=== PATIENT | female | born 1990 | race Caucasian/White ===

== ENCOUNTER 2018-08-26 08:14 | Outpatient (CLI) | payer OTHER ==
[2018-08-26] MEDS ORDERED: None per pt (08:38)
[2018-08-26 09:13] LABS: BASOPHILS # (AUTO) 0.06 x10^3/uL (0-0.1); BASOPHILS % (AUTO) 1 % (0-1); EOSINOPHILS # (AUTO) 0.09 x10^3/uL (0-0.4); EOSINOPHILS % (AUTO) 1 % (1-7); LYMPHOCYTES # (AUTO) 1.89 x10^3/uL (1-3.4); LYMPHOCYTES % (AUTO) 29 % (22-44); MD NO; MEAN CORPUSCULAR HEMOGLOBIN 30.2 pg (27.0-34.8); MEAN CORPUSCULAR VOLUME 88.9 fL (80-100); MEAN PLATELET VOLUME 9.3 fL (7.4-10.4); MONOCYTES # (AUTO) 0.51 x10^3/uL (0.2-0.8); MONOCYTES % (AUTO) 8 % (2-9); NEUTROPHILS # (AUTO) 3.88 x10^3/uL (1.8-6.8); NEUTROPHILS % (AUTO) 60 % (42-75); PLATELET COUNT 200 x10^3/uL (130-400); RED BLOOD COUNT 5.07 x10^6/uL (3.82-5.3); RED CELL DISTRIBUTION WIDTH 12.7 % (9.6-15.2)
== END 2018-08-26 23:59 | disposition home or self-care (01) ==
LOC: STAR 08:14
PROVIDERS: ATTEND Obstetrics & Gynecology
DX: Z01.818 Encounter for other preprocedural examination (principal); D06.9 Carcinoma in situ of cervix, unspecified; R94.31 Abnormal electrocardiogram [ECG] [EKG]
CPT/HCPCS: 36415; 84703; 85025; 93005

== ENCOUNTER 2018-09-02 12:07 | Day surgery (SDC) | payer OTHER ==
[~2018-09-02] VITALS: Ht 172.7 cm; Wt 61.7 kg
[~2018-09-02 12:07] MED LIST: None per pt
[2018-09-02 12:28] VITALS: BP 120/77
[2018-09-02] MEDS ORDERED: HYDROmorphone 1 MG/ML, 1ML INJ IV PRN (12:30)
[2018-09-02] MEDS ORDERED: MEPERIDINE/PF 25MG/0.5ML IVPush PRN (12:30)
[2018-09-02] MEDS ORDERED: METOCLOPRAMIDE 5 MG/ML, 2ML IV PRN (12:30)
[2018-09-02] MEDS ORDERED: FENTANYL PF 100 MCG/2ML IV PRN (12:30)
[2018-09-02] MEDS ORDERED: HYDROcodone/APAP 7.5-325MG/15ML UDC PO PRN (12:30)
[2018-09-02] MEDS ORDERED: MIDAZOLAM 1 MG/ML, 2ML IV PRN (12:30)
[2018-09-02] MEDS ORDERED: KETOROLAC 30 MG/1 ML IV PRN (12:30)
[2018-09-02] MEDS ORDERED: ONDANSETRON 2MG/ML, 2ML IVPush PRN (12:30)
[2018-09-02] MEDS ORDERED: LABETALOL 5MG/ML, 20ML IV PRN (12:30)
[2018-09-02] MEDS ORDERED: OXYcodone 5 MG/5 ML ORAL.SOL UDC PO PRN (12:30)
[2018-09-02] MEDS ORDERED: LACTATED RINGERS 1,000 ML IV SCH (12:31)
[2018-09-02 12:38] LABS: HCG UR SG 1.025 (1.003-1.030)
[2018-09-02] MEDS ORDERED: INTERCEED 3 X 4 INCH DRESSING ONE (13:29)
[2018-09-02] MEDS ORDERED: PROPOFOL 10 MG/ML, 20ML ONE (15:32)
[2018-09-02] MEDS ORDERED: DEXAMETHASONE 4 MG/ML, 1ML ONE (15:32)
[2018-09-02] MEDS ORDERED: FENTANYL PF 250 MCG/5ML ONE (15:32)
[2018-09-02] MEDS ORDERED: MIDAZOLAM 1 MG/ML, 2ML ONE (15:32)
[2018-09-02] MEDS ORDERED: ROCURONIUM 10MG/ML,5ML ONE (15:32)
[2018-09-02] MEDS ORDERED: GLYCOPYRROLATE 0.2MG/1ML, 5ML ONE (15:32)
[2018-09-02] MEDS ORDERED: EPINEPHRINE 1 MG/ML, 1ML ONE (16:04)
[2018-09-02] MEDS ORDERED: BUPIVACAINE/PF 0.25% ONE (16:04)
[2018-09-02] MEDS ORDERED: SCOPOLAMINE PATCH, 1.5MG PATCH.TD72 TD ONE ×2 (16:10→16:30)
[2018-09-02] MEDS ORDERED: LIDOCAINE-MPF 2% ,5ML ONE (16:11)
[2018-09-02] MEDS ORDERED: CEFAZOLIN 1,000 MG ONE (16:11)
[2018-09-02] MEDS ORDERED: FENTANYL PF 100 MCG/2ML ONE (17:16)
[2018-09-02] MEDS ORDERED: KETOROLAC 30 MG/1 ML ONE (17:16)
[2018-09-02] MEDS ORDERED: OXYcodone 5 MG/5 ML ORAL.SOL UDC ONE (17:16)
== END 2018-09-02 18:15 | disposition home or self-care (01) ==
LOC: OUT 12:07
PROVIDERS: ATTEND Obstetrics & Gynecology
DX: D06.0 Carcinoma in situ of endocervix (principal); I27.20 Pulmonary hypertension, unspecified; Z88.6 Allergy status to analgesic agent; Z97.5 Presence of (intrauterine) contraceptive device
CPT/HCPCS: 57520; 81025; 88305; 88307; J0171; J0690; J1100; J1885; J2250; J2704; J3010; J3490; J7120